=== PATIENT | male | born 1985 | race Caucasian/White ===

== ENCOUNTER 2018-03-07 20:38 | Emergency (ER) | payer BC ==
--- NOTE | 2018-03-07 20:54 | ERPHSYRPT ---
- History of Present Illness Time Seen by Provider: 03/07/18 20:54 Source: patient, family Exam Limitations: no limitations Physician History: 33 y/o white male presents with lower back pain of sudden onset when he stooped over and down to get into a car. 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 pain shoots down bilat buttocks. 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) Method of Injury: bending, twisted Quality: radiating (down bilat buttocks), sharp, other (shooting) Back Pain Location: lumbar spine, paraspinous muscles Back Pain Radiation: buttocks Severity of Pain-Max: moderate Severity of Pain-Current: moderate Modifying Factors: Improves With: immobilization (lying still) Associated Symptoms: lower back pain, muscle spasms, No urinary incontinence, No loss of bowel control, No nausea, No vomiting, No problems urinating, No light-headedness, No dizziness, No numbness in legs/feet, No weakness, No tingling in legs/feet Previous symptoms: no prior history Allergies/Adverse Reactions: No Known Drug Allergies Allergy (Unverified 03/07/18 20:55) Home Medications: Venlafaxine HCl ER 75 mg [Effexor XR 75 MG] 75 mg PO DAILY 03/07/18 [ History] - Review of Systems Constitutional: No Symptoms Eyes: No Symptoms Ears, Nose, & Throat: No Symptoms Respiratory: No Symptoms, No Cough, No Dyspnea Cardiac: No Symptoms Abdominal/Gastrointestinal: No Symptoms, No Abdominal Pain, No Nausea, No Vomiting, No Diarrhea Genitourinary Symptoms: No Symptoms, No Dysuria, No Frequency, No Hematuria Musculoskeletal: No Symptoms Skin: No Symptoms Neurological: No Symptoms Psychological: No Symptoms Endocrine: No Symptoms Hematologic/Lymphatic: No Symptoms Immunological/Allergic: No Symptoms All Other Systems: Reviewed and Negative - Past Medical History Pertinent Past Medical History: Yes Neurological History: No Pertinent History ENT History: No Pertinent History Cardiac History: No Pertinent History Respiratory History: No Pertinent History Endocrine Medical History: No Pertinent History Musculoskeletal History: No Pertinent History GI Medical History: No Pertinent History History: No Pertinent History Psycho-Social History: No Pertinent History Male Reproductive Disorders: No Pertinent History - Past Surgical History Neuro Surgical History: No Pertinent History Cardiac: No Pertinent History Respiratory: No Pertinent History Gastrointestinal: No Pertinent History Genitourinary: No Pertinent History Musculoskeletal: No Pertinent History Male Surgical History: No Pertinent History - Nursing Vital Signs Nursing Vital Signs: Initial Vital Signs Temperature 97.9 F 03/07/18 20:39 Pulse Rate 76 03/07/18 20:39 Respiratory Rate 20 03/07/18 20:39 Blood Pressure 147/97 03/07/18 20:39 O2 Sat by Pulse Oximetry 99 03/07/18 20:39 Pain Scale Pain Intensity [Lower 9 Posterior Back] Pain Intensity 9 - Physical Exam General Appearance: no apparent distress, mild distress, alert, anxiety Eye Exam: PERRL/EOMI, eyes nml inspection Ears, Nose, Throat Exam: normal ENT inspection, moist mucous membranes Neck Exam: normal inspection, non-tender, supple, full range of motion Respiratory Exam: normal breath sounds, lungs clear, airway intact, No chest tenderness, No respiratory distress, No accessory muscle use, No rhonchi, No wheezing, No stridor Cardiovascular Exam: regular rate/rhythm, normal heart sounds, normal peripheral pulses Gastrointestinal Exam: soft, normal bowel sounds, No tenderness, No guarding, No rebound Rectal Exam: not done Back Exam: normal inspection, decreased range of motion, muscle spasm Extremity Exam: normal inspection, normal range of motion, pelvis stable Neurologic Exam: alert, oriented x 3, 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, 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 Skin Exam: normal color, warm, dry Lymphatic Exam: No adenopathy SpO2 Interpretation: normal - Course Nursing assessment & vital signs reviewed: Yes Ordered Tests: Medication Summary Discontinued Medications Generic Name Dose Route Start Last Admin Trade Name Patrickq PRN Reason Stop Dose Admin Hydromorphone HCl 1 mg 03/07/18 21:05 Hydromorphone 1 Mg/Ml Ampule IM 03/07/18 21:06 STAT ONE Hydromorphone HCl Confirm 03/07/18 21:09 Hydromorphone 1 Mg/Ml Ampule Administered 03/07/18 21:10 Dose 1 mg .ROUTE .STK-MED ONE Methylprednisolone Sodium Succinate 125 mg 03/07/18 21:06 Solu-Medrol 125 Mg IM 03/07/18 21:07 STAT ONE Methylprednisolone Sodium Succinate Confirm 03/07/18 21:10 Solu-Medrol 125 Mg Administered 03/07/18 21:11 Dose 125 mg .ROUTE .STK-MED ONE Promethazine HCl 12.5 mg 03/07/18 21:05 Phenergan 25 Mg Inj IM 03/07/18 21:06 STAT ONE Promethazine HCl Confirm 03/07/18 21:09 Phenergan 25 Mg Inj Administered 03/07/18 21:10 Dose 25 mg .ROUTE .STK-MED ONE - Progress Progress: improved, pain not gone completely, re-examined Progress Note: 03/07/18 21:24 pt and i opted for no xrays at this time. pt did not fall. Counseled pt/family regarding: diagnosis, need for follow-up - Departure Time of Disposition: 21:25 Departure Disposition: Home Clinical Impression: Sciatica, Low back strain Condition: Stable Critical Care Time: No Additional Instructions: bedrest with back exercises as discussed. follow up with primary doctor tomorrow for further management. take medications as prescribed Prescriptions: Carisoprodol 350 mg [Soma 350 mg] 350 mg PO Q12H PRN PRN #6 tablet MDD 2 PRN Reason: Muscle Spasms Hydrocodone/APAP 5/325 [[place] 5/325 mg] 1 each PO Q12H PRN PRN #6 tablet MDD 2 PRN Reason: Pain Prednisone 10 mg [Deltasone 10 mg] 10 mg PO TID #12 tablet
[2018-03-07 20:55] VITALS: PULSE 76; O2SAT 99
[2018-03-07] MEDS ORDERED: Hydromorphone 1 mg/ml Ampule IM ONE (21:05)
[2018-03-07] MEDS ORDERED: Phenergan 25 MG INJ IM ONE (21:05)
[2018-03-07] MEDS ORDERED: solu-MEDROL 125 MG IM ONE (21:06)
[2018-03-07] MEDS ORDERED: Phenergan 25 MG INJ ONE ×2 (21:09→21:19)
[2018-03-07] MEDS ORDERED: Hydromorphone 1 mg/ml Ampule ONE (21:09)
[2018-03-07] MEDS ORDERED: solu-MEDROL 125 MG ONE (21:10)
[2018-03-07] MEDS ORDERED: Ativan 2 MG/1 ML VIAL IM ONE ×2 (22:02→22:06)
[2018-03-07] MEDS ORDERED: Ativan 2 MG/1 ML VIAL ONE (22:09)
[2018-03-07 22:17] VITALS: BP 129/79
== END 2018-03-07 22:40 | disposition home or self-care (01) ==
LOC: ED 20:38
DX: M54.30 Sciatica, unspecified side (principal); S39.012A Strain of muscle, fascia and tendon of lower back, initial encounter; X50.0XXA Overexertion from strenuous movement or load, initial encounter; M62.838 Other muscle spasm; F41.9 Anxiety disorder, unspecified
CPT/HCPCS: 96372; 99284; J1170; J2060; J2550; J2930

== ENCOUNTER 2021-03-16 09:54 | Observation (INO) | payer BC ==
[2021-03-16] MEDS ORDERED: DUONEB 0.5-3 MG/3 ml Neb IH ONE ×2 (10:32→10:48)
[2021-03-16] MEDS ORDERED: solu-MEDROL 125 MG, Sterile H2O 10 ml 2 ML IV ONE ×2 (10:32)
[2021-03-16] MEDS ORDERED: Zofran 4 MG/2 ML VIAL ONE (10:36)
[2021-03-16] MEDS ORDERED: solu-MEDROL ONE (10:37)
[2021-03-16] MEDS ORDERED: Zofran 4 MG/2 ML VIAL IV ONE (10:37)
[2021-03-16 10:54] LABS: Absolute Neutrophil Ct (ANC) 8.75 (1.4-6.9); BASOPHIL % 0.3 % (0.0-0.4); Basophil (Absolute #) 0.03 (0-0.4); Eosinophil % 2.6 % (0.00-5.0); Hematocrit 50.3 % (42-50); Lymphocyte (Absolute #) 1.46 (1.0-4.6); Lymphocytes % 12.7 % (24.0-44.0); Mean Cell Volume 88.9 fl (78-100); Mean Corpuscular Hgb Concent. 33.8 g/dl (32-36); Mean Platelet Volume 11.7 fl (7.5-11.0); Monocyte (Absolute #) 0.98 (0.0-1.3); Monocytes % 8.5 % (0.0-12.0); Neutrophil % 75.9 % (36.0-66.0); Platelet Count 246 K/mm3 (150-450); Red Blood Count 5.66 M/mm3 (4.1-5.6); Red Cell Distribution Width 13.1 % (11.5-14.0); White Blood Count 11.5 K/mm3 (4.0-10.5)
[2021-03-16 11:12] LABS: ALBUMIN 4.5 g/dL (3.5-5.0); ALKALINE PHOSPHATASE 101 U/L (38-126); ANION GAP 16.4 MEQ/L (5-15); BLOOD UREA NITROGEN 15 mg/dL (9-20); CHLORIDE 104 mmol/L (98-107); Calcium 9.3 mg/dL (8.4-10.2); Carbon Dioxide 22 mmol/L (22-30); Creatinine 1 0.91 mg/dL (0.66-1.25); EST GLOMERULAR FILTRATION RATE > 60.0 ML/MIN; Glucose 112 mg/dL (74-106); LIPASE 31 U/L (23-300); MAGNESIUM 2.2 mg/dL (1.6-2.3); NT PRO BNP 70.2 pg/mL (0-450); Potassium 3.8 mmol/L (3.5-5.1); SGOT/AST 44 U/L (17-59); SGPT/ALT 86 U/L (0-50); SODIUM 139 mmol/L (137-145); Total Protein 7.9 g/dL (6.3-8.2)
--- NOTE | 2021-03-16 11:25 | ERPHSYRPT ---
- History of Present Illness Time Seen by Provider: 03/16/21 10:04 Source: patient Exam Limitations: no limitations Patient Subjective Stated Complaint: pt sent from [facility] for cough and sob since yesterday, pt states he also has a dull taste and vomited x1 yesterday. no feve. Triage Nursing Assessment: pt alert, anxious, resp labored with excertion, skin w/d/p. abd soft, face mask in place. chest clear, no edema noted Timing/Duration: day(s) (2), gradual onset, worse Activities at Onset: activity, rest Severity of Dyspnea-Max: moderate Severity of Dyspnea-Current: moderate Possible Cause: no prior episodes Modifying Factors: Improves With: rest. Worsens With: activity, coughing, deep breath, exertion Associated Symptoms: cough, chest pain/discomfort, fever, wheezing Allergies/Adverse Reactions: No Known Drug Allergies Allergy (Verified 03/16/21 10:25) Home Medications: Fluoxetine HCl 10 mg [Prozac 10 mg] 1 ea DAILY 03/16/21 [History] Hx Tetanus, Diphtheria Vaccination/Date Given: Yes Hx Influenza Vaccination/Date Given: No Hx Pneumococcal Vaccination/Date Given: No Immunizations Up to Date: Yes Travel Risk - International Travel Have you traveled outside of the country in past 3 weeks: No - Coronavirus Screening Are you exhibiting any of the following symptoms?: Yes Symptoms: Cough: New Onset, Shortness of Breath Close contact with a COVID-19 positive Pt in past 14-21 Days: No - Vaccine Status Have you recieved a Covid-19 vaccination: Yes [employer]enger [employer]: Moderna - Vaccination Dates Date of 2cond Vaccination (if applicable): ? - Review of Systems Constitutional: Fever, Fatigue Eyes: No Symptoms Ears, Nose, & Throat: No Symptoms Respiratory: Cough, Dyspnea, Dyspnea on Exertion (KAHN), Wheezing Cardiac: Chest Pain Abdominal/Gastrointestinal: Nausea, Vomiting Genitourinary Symptoms: No Symptoms Musculoskeletal: Myalgias Skin: No Symptoms Neurological: No Symptoms Psychological: No Symptoms Endocrine: No Symptoms Hematologic/Lymphatic: No Symptoms - Past Medical History Pertinent Past Medical History: Yes Neurological History: No Pertinent History ENT History: No Pertinent History Cardiac History: No Pertinent History Respiratory History: No Pertinent History Endocrine Medical History: No Pertinent History Musculoskeletal History: No Pertinent History GI Medical History: No Pertinent History History: No Pertinent History Psycho-Social History: No Pertinent History Male Reproductive Disorders: No Pertinent History - Past Surgical History Past Surgical History: Yes Neuro Surgical History: No Pertinent History Cardiac: No Pertinent History Respiratory: No Pertinent History Gastrointestinal: No Pertinent History Genitourinary: No Pertinent History Musculoskeletal: No Pertinent History Male Surgical History: No Pertinent History - Social History Smoking Status: Current every day smoker Exposure to second hand smoke: Yes Drug Use: none Patient Lives Alone: No - Nursing Vital Signs Nursing Vital Signs: Initial Vital Signs Temperature 97.0 F 03/16/21 10:17 Pulse Rate 102 H 03/16/21 10:17 Respiratory Rate 18 03/16/21 10:17 Blood Pressure 149/92 03/16/21 10:17 O2 Sat by Pulse Oximetry 94 L 03/16/21 10:17 Pain Scale Pain Intensity 4 - Physical Exam General Appearance: no apparent distress, alert Eye Exam: PERRL/EOMI, eyes nml inspection Ears, Nose, Throat Exam: hearing grossly normal, normal ENT inspection Neck Exam: normal inspection, non-tender, supple, full range of motion Respiratory Exam: diminished breath sounds, wheezing Cardiovascular/Chest Exam: normal heart sounds, regular rate/rhythm Abdominal/Gastrointestinal Exam: soft, normal bowel sounds Extremity Exam: non-tender, normal range of motion, normal inspection Neurologic Exam: alert, oriented x 3, cooperative Skin Exam: normal color SpO2 Interpretation: normal SpO2: 96 O2 Delivery: Room Air Ordered Tests: Active Orders 24 hr Category Date Time Status Director Of Casino STAT Care 03/16/21 10:33 Active EKG-ER Only STAT Care 03/16/21 10:32 Active IV Insertion STAT Care 03/16/21 10:32 Active CHEST 1 VIEW (PORTABLE) Stat Exams 03/16/21 10:33 Taken CHEST WITH CONTRAST [CT] Stat Exams 03/16/21 11:17 Taken BLOOD CULTURE Stat Lab 03/16/21 10:53 Received CBC W DIFF Stat Lab 03/16/21 10:10 Completed CMP Stat Lab 03/16/21 10:30 Completed D-DIMER QUANTITATIVE Stat Lab 03/16/21 10:30 Completed LIPASE Stat Lab 03/16/21 10:30 Completed Lactic Acid Stat Lab 03/16/21 10:50 Completed MAGNESIUM Stat Lab 03/16/21 10:30 Completed NT PRO BNP Stat Lab 03/16/21 10:30 Completed TROPONIN Q3H Lab 03/16/21 10:30 Completed TROPONIN Q3H Lab 03/16/21 13:20 Completed TROPONIN Q3H Lab 03/16/21 16:45 Ordered TROPONIN Q3H Lab 03/16/21 19:45 Ordered TROPONIN Q3H Lab 03/16/21 22:45 Ordered Respiratory Therapy Assessment DAILY RT 03/16/21 10:59 Active Medication Summary Discontinued Medications Generic Name Dose Route Start Last Admin Trade Name Freq PRN Reason Stop Dose Admin Albuterol/Ipratropium 3 ml 03/16/21 10:32 03/16/21 10:58 Ipratropium/Albuterol Sulfate 3 Ml Ampul.Neb IH 03/16/21 10:33 3 ml STAT ONE Administration Albuterol/Ipratropium Confirm 03/16/21 10:48 Ipratropium/Albuterol Sulfate 3 Ml Ampul.Neb Administered 03/16/21 10:49 Dose 3 ml IH .STK-MED ONE Methylprednisolone Sodium 0 mg 03/16/21 10:32 03/16/21 10:38 Succinate 125 mg/ Sterile IV 03/16/21 10:33 125 mg Water 2 ml STAT ONE Administration Methylprednisolone Sodium Succinate Confirm 03/16/21 10:37 Methylprednis Sod Succ 125 Mg/2 Ml Vial Administered 03/16/21 10:38 Dose 125 mg .ROUTE .STK-MED ONE Ondansetron HCl 4 mg 03/16/21 10:37 03/16/21 10:39 Ondansetron Hcl 4 Mg/2 Ml Vial IV 03/16/21 10:38 4 mg STAT ONE Administration Ondansetron HCl Confirm 03/16/21 10:36 Ondansetron Hcl 4 Mg/2 Ml Vial Administered 03/16/21 10:37 Dose 4 mg .ROUTE .STK-MED ONE Lab/Rad Data: Laboratory Result Diagrams 03/16/21 10:10 03/16/21 10:30 Laboratory Results 03/16/21 03/16/21 03/16/21 Range/Units 13:20 10:50 10:30 WBC (4.0-10.5) K/mm3 RBC (4.1-5.6) M/mm3 Hgb (12.5-18.0) gm/dl Hct (42-50) % MCV (78-100) fl MCH (26-32) pg MCHC (32-36) g/dl RDW (11.5-14.0) % Plt Count (150-450) K/mm3 MPV (7.5-11.0) fl Gran % (36.0-66.0) % Eos # (Auto) (0-0.5) Absolute Lymphs (auto) (1.0-4.6) Absolute Monos (auto) (0.0-1.3) Lymphocytes % (24.0-44.0) % Monocytes % (0.0-12.0) % Eosinophils % (0.00-5.0) % Basophils % (0.0-0.4) % Absolute Granulocytes (1.4-6.9) Basophils # (0-0.4) D-Dimer (215-500) ng/mL Sodium (137-145) mmol/L Potassium (3.5-5.1) mmol/L Chloride (98-107) mmol/L Carbon Dioxide (22-30) mmol/L Anion Gap (5-15) MEQ/L BUN (9-20) mg/dL Creatinine (0.66-1.25) mg/dL Estimated GFR ML/MIN Glucose (74-106) mg/dL Lactic Acid 1.2 (0.4-2.0) Calcium (8.4-10.2) mg/dL Magnesium (1.6-2.3) mg/dL Total Bilirubin (0.2-1.3) mg/dL AST (17-59) U/L ALT (0-50) U/L Alkaline Phosphatase (38-126) U/L Troponin I < 0.012 < 0.012 (0.000-0.034) ng/mL NT-Pro-B Natriuret Pep (0-450) pg/mL Serum Total Protein (6.3-8.2) g/dL Albumin (3.5-5.0) g/dL Lipase (23-300) U/L 03/16/21 03/16/21 03/16/21 Range/Units 10: 10: 10:10 WBC 11.5 H (4.0-10.5) K/mm3 RBC 5.66 H (4.1-5.6) M/mm3 Hgb 17.0 (12.5-18.0) gm/dl Hct 50.3 H (42-50) % MCV 88.9 (78-100) fl MCH 30.0 (26-32) pg MCHC 33.8 (32-36) g/dl RDW 13.1 (11.5-14.0) % Plt Count 246 (150-450) K/mm3 MPV 11.7 H (7.5-11.0) fl Gran % 75.9 H (36.0-66.0) % Eos # (Auto) 0.30 (0-0.5) Absolute Lymphs (auto) 1.46 (1.0-4.6) Absolute Monos (auto) 0.98 (0.0-1.3) Lymphocytes % 12.7 L (24.0-44.0) % Monocytes % 8.5 (0.0-12.0) % Eosinophils % 2.6 (0.00-5.0) % Basophils % 0.3 (0.0-0.4) % Absolute Granulocytes 8.75 H (1.4-6.9) Basophils # 0.03 (0-0.4) D-Dimer < 215 L (215-500) ng/mL Sodium 139 (137-145) mmol/L Potassium 3.8 (3.5-5.1) mmol/L Chloride 104 (98-107) mmol/L Carbon Dioxide 22 (22-30) mmol/L Anion Gap 16.4 H (5-15) MEQ/L BUN 15 (9-20) mg/dL Creatinine 0.91 (0.66-1.25) mg/dL Estimated GFR > 60.0 ML/MIN Glucose 112 H (74-106) mg/dL Lactic Acid (0.4-2.0) Calcium 9.3 (8.4-10.2) mg/dL Magnesium 2.2 (1.6-2.3) mg/dL Total Bilirubin 1.00 (0.2-1.3) mg/dL AST 44 (17-59) U/L ALT 86 H (0-50) U/L Alkaline Phosphatase 101 (38-126) U/L Troponin I (0.000-0.034) ng/mL NT-Pro-B Natriuret Pep 70.2 (0-450) pg/mL Serum Total Protein 7.9 (6.3-8.2) g/dL Albumin 4.5 (3.5-5.0) g/dL Lipase 31 (23-300) U/L - Progress Progress: improved Air Movement: fair Progress Note: 03/16/21 13:53 Discussed with /work-upt, reviewed history and patient is accepted for admission. Blood Culture(s) Obtained: Yes Antibiotics given: Yes Discussed with : Kyle Will see patient in: hospital (observation) Counseled pt/family regarding: lab results, diagnosis, rad results - Departure Departure Disposition: Observation Clinical Impression: Bilateral pneumonia Qualifiers: Pneumonia type: due to unspecified organism Lung location: unspecified part of lung Qualified Code(s): J18.9 - Pneumonia, unspecified organism Condition: Stable Critical Care Time: No Referrals: LIAN REYNA NP [Primary Care Provider] -
[2021-03-16] MEDS ORDERED: ROCEPHIN 2 Gm-D5w 50ML BAG** 2 G/50 ML IVPB IV STA (13:52)
[2021-03-16] MEDS ORDERED: Zithromax 500 MG/ 250 ML NaCl Premix 500 MG/250 ML IVPB IV STA (13:52)
[2021-03-16] MEDS ORDERED: ROCEPHIN 1 Gm-D5w 50 ml Bag** 0 G/0 ML IVPB IV ONE (14:05)
[2021-03-16] MEDS ORDERED: ROCEPHIN 2 Gm-D5w 50ML BAG** 2 G/50 ML IVPB IV ONE (14:08)
--- NOTE | 2021-03-16 14:21 | ERPHSYRPT ---
- History of Present Illness Time Seen by Provider: 03/16/21 10:04 Source: patient Exam Limitations: no limitations Patient Subjective Stated Complaint: pt sent from [facility] for cough and sob since yesterday, pt states he also has a dull taste and vomited x1 yesterday. no feve. Triage Nursing Assessment: pt alert, anxious, resp labored with excertion, skin w/d/p. abd soft, face mask in place. chest clear, no edema noted Physician History: 36 years old vaccinated against COVID-19 presented in the ER with chief com plaint of low-grade fever chills with nonproductive cough with associated nausea and a couple of episodes of vomiting for the last 2 days. Patient reports generalized weakness fatigue and tiredness along with change in sense of smell and taste. Patient reports increasing shortness of breath with activity and better with resting. He was initially evaluated at [facility] and oxygen saturation was dropping into the low 80s and is sent in the ER. Patient reports positive sick contact with known COVID-19 case. Oxygen saturation is around 90% on room air at resting and drops to 87 and comes back up on its own to 94%. Does report some wheezing and tightness in the chest as well. Timing/Duration: day(s) (2), gradual onset, worse Activities at Onset: activity Severity of Dyspnea-Max: moderate Severity of Dyspnea-Current: moderate Possible Cause: illness exposure Modifying Factors: Improves With: rest. Worsens With: activity, coughing, deep breath, exertion Associated Symptoms: cough, chest pain/discomfort, wheezing, tightness Allergies/Adverse Reactions: No Known Drug Allergies Allergy (Verified 03/16/21 10:25) Home Medications: Fluoxetine HCl 10 mg [Prozac 10 mg] 1 ea DAILY 03/16/21 [History] Hx Tetanus, Diphtheria Vaccination/Date Given: Yes Hx Influenza Vaccination/Date Given: No Hx Pneumococcal Vaccination/Date Given: No Immunizations Up to Date: Yes Travel Risk - International Travel Have you traveled outside of the country in past 3 weeks: No - Coronavirus Screening Are you exhibiting any of the following symptoms?: Yes Symptoms: Cough: New Onset, Shortness of Breath Close contact with a COVID-19 positive Pt in past 14-21 Days: No - Vaccine Status Have you recieved a Covid-19 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 - Review of Systems Constitutional: Fever, Fatigue, Weakness Eyes: No Symptoms Ears, Nose, & Throat: Nose Congestion, Throat Pain Respiratory: Cough, Cyanosis, Dyspnea on Exertion ([facility]), Wheezing Cardiac: Chest Pain Abdominal/Gastrointestinal: Nausea, Vomiting Genitourinary Symptoms: No Symptoms Musculoskeletal: Myalgias Skin: No Symptoms Neurological: No Symptoms Psychological: Anxiety Endocrine: No Symptoms Hematologic/Lymphatic: No Symptoms Immunological/Allergic: No Symptoms - Past Medical History Pertinent Past Medical History: Yes Neurological History: No Pertinent History ENT History: No Pertinent History Cardiac History: No Pertinent History Respiratory History: No Pertinent History Endocrine Medical History: No Pertinent History Musculoskeletal History: No Pertinent History GI Medical History: No Pertinent History History: No Pertinent History Psycho-Social History: No Pertinent History Male Reproductive Disorders: No Pertinent History - Past Surgical History Past Surgical History: Yes Neuro Surgical History: No Pertinent History Cardiac: No Pertinent History Respiratory: No Pertinent History Gastrointestinal: No Pertinent History Genitourinary: No Pertinent History Musculoskeletal: No Pertinent History Male Surgical History: No Pertinent History - Social History Smoking Status: Current every day smoker Exposure to second hand smoke: Yes Drug Use: none Patient Lives Alone: No - Nursing Vital Signs Nursing Vital Signs: Initial Vital Signs Temperature 97.0 F 03/16/21 10:17 Pulse Rate 102 H 03/16/21 10:17 Respiratory Rate 18 03/16/21 10:17 Blood Pressure 149/92 03/16/21 10:17 O2 Sat by Pulse Oximetry 94 L 03/16/21 10:17 Pain Scale Pain Intensity 4 - Physical Exam General Appearance: no apparent distress, alert, anxiety Eye Exam: PERRL/EOMI, eyes nml inspection Ears, Nose, Throat Exam: hearing grossly normal, pharyngeal erythema Neck Exam: normal inspection, non-tender, supple, full range of motion Respiratory Exam: diminished breath sounds, rhonchi, wheezing Cardiovascular/Chest Exam: normal heart sounds, regular rate/rhythm Abdominal/Gastrointestinal Exam: soft, normal bowel sounds, No tenderness Extremity Exam: non-tender, normal range of motion, normal inspection Neurologic Exam: alert, oriented x 3, cooperative, 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 SpO2: 93 O2 Delivery: Room Air - Course EKG Interpreted by Me: RATE (84), Sinus Rhythm, NORMAL AXIS, NORMAL INTERVALS, NORMAL QRS, Other (PACs) Ordered Tests: Active Orders 24 hr Category Date Time Status Electronics Teacher STAT Care 03/16/21 10:33 Active EKG-ER Only STAT Care 03/16/21 10:32 Active IV Insertion STAT Care 03/16/21 10:32 Active CHEST 1 VIEW (PORTABLE) Stat Exams 03/16/21 10:33 Taken CHEST WITH CONTRAST [CT] Stat Exams 03/16/21 11:17 Taken BLOOD CULTURE Stat Lab 03/16/21 10:53 Received CBC W DIFF Stat Lab 03/16/21 10:10 Completed CMP Stat Lab 03/16/21 10:30 Completed D-DIMER QUANTITATIVE Stat Lab 03/16/21 10:30 Completed LIPASE Stat Lab 03/16/21 10:30 Completed Lactic Acid Stat Lab 03/16/21 10:50 Completed MAGNESIUM Stat Lab 03/16/21 10:30 Completed NT PRO BNP Stat Lab 03/16/21 10:30 Completed TROPONIN Q3H Lab 03/16/21 10:30 Completed TROPONIN Q3H Lab 03/16/21 13:20 Completed TROPONIN Q3H Lab 03/16/21 16:45 Ordered TROPONIN Q3H Lab 03/16/21 19:45 Ordered TROPONIN Q3H Lab 03/16/21 22:45 Ordered Respiratory Therapy Assessment DAILY RT 03/16/21 10:59 Active Medication Summary Discontinued Medications Generic Name Dose Route Start Last Admin Trade Name Freq PRN Reason Stop Dose Admin Albuterol/Ipratropium 3 ml 03/16/21 10:32 03/16/21 10:58 Ipratropium/Albuterol Sulfate 3 Ml Ampul.Neb IH 03/16/21 10:33 3 ml STAT ONE Administration Albuterol/Ipratropium Confirm 03/16/21 10:48 Ipratropium/Albuterol Sulfate 3 Ml Ampul.Neb Administered 03/16/21 10:49 Dose 3 ml IH .STK-MED ONE Methylprednisolone Sodium 0 mg 03/16/21 10:32 03/16/21 10:38 Succinate 125 mg/ Sterile IV 03/16/21 10:33 125 mg Water 2 ml STAT ONE Administration Azithromycin 500 mg in 250 mls @ 250 mls/hr 03/16/21 13:52 03/16/21 14:43 Zithromax 500 Mg/ 250 Ml Nacl Premix IV 03/16/21 14:51 250 mls/hr STAT STA 250 mls/hr Administration Ceftriaxone Sodium/Dextrose 2 g in 50 mls @ 100 mls/hr 03/16/21 13:52 10/3 14:42 Rocephin 2 Gm-D5w 50ml Bag IV 03/16/21 14:21 Infused STAT STA Infusion Ceftriaxone Sodium/Dextrose Confirm 03/16/21 14:05 Rocephin 1 Gm-D5w 50 Ml Bag Administered 03/16/21 14:06 Dose 1 g in 50 mls @ ud IV .STK-MED ONE Ceftriaxone Sodium/Dextrose Confirm 03/16/21 14:08 Rocephin 2 Gm-D5w 50ml Bag Administered 03/16/21 14:09 Dose 2 g in 50 mls @ ud IV .STK-MED ONE Azithromycin Confirm 03/16/21 14:42 Zithromax 500 Mg/ 250 Ml Nacl Premix Administered 03/16/21 14:43 Dose 500 mg in 250 mls @ ud IV .STK-MED ONE Methylprednisolone Sodium Succinate Confirm 03/16/21 10:37 Methylprednis Sod Succ 125 Mg/2 Ml Vial Administered 03/16/21 10:38 Dose 125 mg .ROUTE .STK-MED ONE Ondansetron HCl 4 mg 03/16/21 10:37 03/16/21 10:39 Ondansetron Hcl 4 Mg/2 Ml Vial IV 03/16/21 10:38 4 mg STAT ONE Administration Ondansetron HCl Confirm 03/16/21 10:36 Ondansetron Hcl 4 Mg/2 Ml Vial Administered 03/16/21 10:37 Dose 4 mg .ROUTE .STK-MED ONE Lab/Rad Data: Laboratory Result Diagrams 03/16/21 10:10 03/16/21 10:30 Laboratory Results 03/16/21 03/16/21 03/16/21 Range/Units 13:49 13:20 10:50 WBC (4.0-10.5) K/mm3 RBC (4.1-5.6) M/mm3 Hgb (12.5-18.0) gm/dl Hct (42-50) % MCV (78-100) fl MCH (26-32) pg MCHC (32-36) g/dl RDW (11.5-14.0) % Plt Count (150-450) K/mm3 MPV (7.5-11.0) fl Gran % (36.0-66.0) % Eos # (Auto) (0-0.5) Absolute Lymphs (auto) (1.0-4.6) Absolute Monos (auto) (0.0-1.3) Lymphocytes % (24.0-44.0) % Monocytes % (0.0-12.0) % Eosinophils % (0.00-5.0) % Basophils % (0.0-0.4) % Absolute Granulocytes (1.4-6.9) Basophils # (0-0.4) D-Dimer (215-500) ng/mL Sodium (137-145) mmol/L Potassium (3.5-5.1) mmol/L Chloride (98-107) mmol/L Carbon Dioxide (22-30) mmol/L Anion Gap (5-15) MEQ/L BUN (9-20) mg/dL Creatinine (0.66-1.25) mg/dL Estimated GFR ML/MIN Glucose (74-106) mg/dL Lactic Acid 1.2 (0.4-2.0) Calcium (8.4-10.2) mg/dL Magnesium (1.6-2.3) mg/dL Total Bilirubin (0.2-1.3) mg/dL AST (17-59) U/L ALT (0-50) U/L Alkaline Phosphatase (38-126) U/L Troponin I < 0.012 (0.000-0.034) ng/mL NT-Pro-B Natriuret Pep (0-450) pg/mL Serum Total Protein (6.3-8.2) g/dL Albumin (3.5-5.0) g/dL Lipase (23-300) U/L SARS-CoV-2 (PCR) NEGATIVE (NEGATIVE) 03/16/21 03/16/21 03/16/21 Range/Units 10:30 10: 10:30 WBC (4.0-10.5) K/mm3 RBC (4.1-5.6) M/mm3 Hgb (12.5-18.0) gm/dl Hct (42-50) % MCV (78-100) fl MCH (26-32) pg MCHC (32-36) g/dl RDW (11.5-14.0) % Plt Count (150-450) K/mm3 MPV (7.5-11.0) fl Gran % (36.0-66.0) % Eos # (Auto) (0-0.5) Absolute Lymphs (auto) (1.0-4.6) Absolute Monos (auto) (0.0-1.3) Lymphocytes % (24.0-44.0) % Monocytes % (0.0-12.0) % Eosinophils % (0.00-5.0) % Basophils % (0.0-0.4) % Absolute Granulocytes (1.4-6.9) Basophils # (0-0.4) D-Dimer < 215 L (215-500) ng/mL Sodium 139 (137-145) mmol/L Potassium 3.8 (3.5-5.1) mmol/L Chloride 104 (98-107) mmol/L Carbon Dioxide 22 (22-30) mmol/L Anion Gap 16.4 H (5-15) MEQ/L BUN 15 (9-20) mg/dL Creatinine 0.91 (0.66-1.25) mg/dL Estimated GFR > 60.0 ML/MIN Glucose 112 H (74-106) mg/dL Lactic Acid (0.4-2.0) Calcium 9.3 (8.4-10.2) mg/dL Magnesium 2.2 (1.6-2.3) mg/dL Total Bilirubin 1.00 (0.2-1.3) mg/dL AST 44 (17-59) U/L ALT 86 H (0-50) U/L Alkaline Phosphatase 101 (38-126) U/L Troponin I < 0.012 (0.000-0.034) ng/mL NT-Pro-B Natriuret Pep 70.2 (0-450) pg/mL Serum Total Protein 7.9 (6.3-8.2) g/dL Albumin 4.5 (3.5-5.0) g/dL Lipase 31 (23-300) U/L SARS-CoV-2 (PCR) (NEGATIVE) 03/16/21 Range/Units 10:10 WBC 11.5 H (4.0-10.5) K/mm3 RBC 5.66 H (4.1-5.6) M/mm3 Hgb 17.0 (12.5-18.0) gm/dl Hct 50.3 H (42-50) % MCV 88.9 (78-100) fl MCH 30.0 (26-32) pg MCHC 33.8 (32-36) g/dl RDW 13.1 (11.5-14.0) % Plt Count 246 (150-450) K/mm3 MPV 11.7 H (7.5-11.0) fl Gran % 75.9 H (36.0-66.0) % Eos # (Auto) 0.30 (0-0.5) Absolute Lymphs (auto) 1.46 (1.0-4.6) Absolute Monos (auto) 0.98 (0.0-1.3) Lymphocytes % 12.7 L (24.0-44.0) % Monocytes % 8.5 (0.0-12.0) % Eosinophils % 2.6 (0.00-5.0) % Basophils % 0.3 (0.0-0.4) % Absolute Granulocytes 8.75 H (1.4-6.9) Basophils # 0.03 (0-0.4) D-Dimer (215-500) ng/mL Sodium (137-145) mmol/L Potassium (3.5-5.1) mmol/L Chloride (98-107) mmol/L Carbon Dioxide (22-30) mmol/L Anion Gap (5-15) MEQ/L BUN (9-20) mg/dL Creatinine (0.66-1.25) mg/dL Estimated GFR ML/MIN Glucose (74-106) mg/dL Lactic Acid (0.4-2.0) Calcium (8.4-10.2) mg/dL Magnesium (1.6-2.3) mg/dL Total Bilirubin (0.2-1.3) mg/dL AST (17-59) U/L ALT (0-50) U/L Alkaline Phosphatase (38-126) U/L Troponin I (0.000-0.034) ng/mL NT-Pro-B Natriuret Pep (0-450) pg/mL Serum Total Protein (6.3-8.2) g/dL Albumin (3.5-5.0) g/dL Lipase (23-300) U/L SARS-CoV-2 (PCR) (NEGATIVE) - Progress Progress: improved Air Movement: good Progress Note: 03/16/21 14:19 36-year-old is evaluated for worsening shortness of breath along with cough and fever with positive known COVID-19 contact. Patient oxygen saturation is around 90% on room air and drops few points above and comes back up at resting. Placed on a 2 L oxygen and is satting around 96%. Chest x-ray showed bilateral few airspace disease. White count 11, grossly unremarkable chemistry except for mildly elevated transaminases. CTA showed bilateral airspace disease consistent with atypical pneumonia/viral pneumonia. Given dose of antibiotic along with steroids and breathing treatment. Patient is feeling better on reevaluation. With his oxygen saturation dropping I think it would be better if we observe him in the hospital. I have discussed with and patient is accepted for admission. 03/16/21 15:23 Patient has negative COVID-19. D[address] with Dr. Mayes, will hold off on remdesivir for now and will continue with antibiotics, steroids and patient is accepted for admission with contact/droplet/airborne precautions. Blood Culture(s) Obtained: Yes Antibiotics given: Yes Discussed with : Kyle Will see patient in: hospital (observation) Counseled pt/family regarding: lab results, diagnosis, rad results - Departure Departure Disposition: Observation Clinical Impression: Bilateral pneumonia Qualifiers: Pneumonia type: due to unspecified organism Lung location: unspecified part of lung Qualified Code(s): J18.9 - Pneumonia, unspecified organism Condition: Stable Critical Care Time: No Referrals: LIAN REYNA NP [Primary Care Provider] -
[2021-03-16] MEDS ORDERED: Zithromax 500 MG/ 250 ML NaCl Premix 500 MG/250 ML IVPB IV ONE (14:42)
[2021-03-16] MEDS ORDERED: TYLENOL 325 MG PO PRN (16:03)
[2021-03-16] MEDS ORDERED: Zofran 4 MG/2 ML VIAL IV PRN (16:03)
--- NOTE | 2021-03-16 18:10 | XRAY ---
Indication: Short of breath, cough, and fever. Suspect Covid 19. Comparison: None Portable chest demonstrates subtle hazy patchy right lung groundglass airspace disease. Remaining heart, lungs, and bony thorax are unremarkable.
--- NOTE | 2021-03-16 18:10 | XRAY ---
Indication: Short of breath and cough. Suspect Covid 19. Multiple contiguous axial images obtained through the chest using 100 cc Isovue-370 contrast and PE protocol. Comparison: None There is suboptimal opacification of the pulmonary arteries limiting evaluation for pulmonary embolus. No obvious central pulmonary embolus. Heart not enlarged. Aorta normal in course and caliber. Small subcarinal calcified nodes. No pathologic mediastinal/hilar lymphadenopathy. Lungs demonstrates minimal patchy diffuse right lung and minimal left lower lobe groundglass airspace disease without consolidation/effusion. A few tiny right lung calcified granulomas. Bony thorax intact. Limited upper abdomen demonstrates fatty liver. Impression: 1. Pulmonary embolus evaluation limited due to suboptimal contrast opacification. No obvious central pulmonary embolus. 2. Minimal patchy groundglass airspace disease, right greater than left. 3. Incidental fatty liver and old granulomatous disease. Comment: Preliminary interpretation may by [facility]. No critical discrepancy.
[2021-03-16] MEDS: DUONEB 0.5-3 MG/3 ml Neb IH SCH (19:21)
[2021-03-17] MEDS: DUONEB 0.5-3 MG/3 ml Neb IH SCH ×2 (01:05→06:26)
[2021-03-17 01:27] VITALS: O2SAT 94
[2021-03-17 06:06] LABS: Absolute Neutrophil Ct (ANC) 10.95 (1.4-6.9); BASOPHIL % 0.1 % (0.0-0.4); Basophil (Absolute #) 0.02 (0-0.4); Eosinophil % 0.2 % (0.00-5.0); Eosinophil (Absolute #) 0.03 (0-0.5); Hematocrit 45.2 % (42-50); Lymphocytes % 12.8 % (24.0-44.0); Mean Cell Volume 90.2 fl (78-100); Mean Corpuscular Hemoglobin 29.9 pg (26-32); Mean Corpuscular Hgb Concent. 33.2 g/dl (32-36); Mean Platelet Volume 10.9 fl (7.5-11.0); Monocyte (Absolute #) 1.25 (0.0-1.3); Monocytes % 8.9 % (0.0-12.0); Platelet Count 235 K/mm3 (150-450); Red Blood Count 5.01 M/mm3 (4.1-5.6); Red Cell Distribution Width 12.9 % (11.5-14.0); White Blood Count 14.1 K/mm3 (4.0-10.5)
[2021-03-17 06:32] LABS: ALKALINE PHOSPHATASE 82 U/L (38-126); ANION GAP 12.1 MEQ/L (5-15); BLOOD UREA NITROGEN 16 mg/dL (9-20); CHLORIDE 104 mmol/L (98-107); Carbon Dioxide 23 mmol/L (22-30); Creatinine 1 0.78 mg/dL (0.66-1.25); EST GLOMERULAR FILTRATION RATE > 60.0 ML/MIN; Glucose 119 mg/dL (74-106); Potassium 3.7 mmol/L (3.5-5.1); SGOT/AST 26 U/L (17-59); SGPT/ALT 60 U/L (0-50); SODIUM 136 mmol/L (137-145); Total Protein 7.3 g/dL (6.3-8.2)
[2021-03-17] MEDS ORDERED: CLARITIN 10 MG PO PRN (07:50)
[2021-03-17] MEDS ORDERED: ROCEPHIN 1 Gm-D5w 50 ml Bag** 1 G/50 ML IVPB IV SCH (10:00)
[2021-03-17] MEDS ORDERED: Zithromax 500 MG/ 250 ML NaCl Premix 500 MG/250 ML IVPB IV SCH (10:00)
[2021-03-17] MEDS ORDERED: ENOXAPARIN SODIUM SQ SCH (10:00)
[2021-03-17] MEDS ORDERED: PROZAC 10 MG PO SCH (10:00)
[2021-03-17] MEDS ORDERED: PROTONIX 40 MG IV IV SCH (10:00)
[2021-03-17 12:16] VITALS: BP 121/64; PULSE 81
--- NOTE | 2021-03-17 13:38 | PCM.SSS ---
History of Present Illness - Chief Complaint Chief Complaint: Bilateral Pneumonia History of Present Illness: is a 36 year old male pt of Dr. Jacobson who was admitted through ER with CP and SOB, dx with atypical pna. He had fever to 102 at home with some shortness of breath, starting about 2 days ago. He had gone to yesterday c/o cough, decreased taste, weakness and fatigue, with some post-tussive vomiting. He was sent to ER after they noted O2 sat in low 80s. In ER he was placed on 2L NC. CXR showed patchy R lung ground glass airspace disease. CT chest showed no obvious PE; minimal patchy groundglass opacities, R>L, and fatty liver. It was assumed he likely had Covid, but when his Covid test was negative, he received IV rocephin and zithromax and was admitted to med surg for observation. He did have a positive Covid contact. However, he did have Covid in the past and he has been fully vaccinated. Initial WBC count was 11.5; is 14.1 this morning. He did get 1 dose of steroids in ER, but they were not continued on the floor. His troponins were neg x 3. He has had no O2 since being in the ER, and had none overnight. - Review of Systems Constitutional: Fatigue, Weakness Respiratory: Cough, Short Of Breath Abdominal/Gastrointestinal: Vomiting All Other Systems: Reviewed and Negative Medications & Allergies Home Medications: Home Medication List Fluoxetine HCl 10 mg [Prozac 10 mg] 10 mg PO DAILY 03/16/21 [History Confirmed 03/16/21] Loratadine 10 mg [Claritin 10 mg] 10 mg PO DAILY PRN PRN 03/16/21 [History Confirmed 03/16/21] Azithromycin 250 mg [Zithromax 250 MG TABLET] 250 mg PO DAILY 3 Days #3 tablet 03/17/21 [Rx] Allergies/Adverse Reactions: Allergies Allergy/AdvReac Type Severity Reaction Status Date / Time No Known Drug Allergies Allergy Verified 03/16/21 10:25 - Past Medical History Past Medical History: No Neurological History: No Pertinent History ENT History: No Pertinent History Cardiac History: No Pertinent History Respiratory History: No Pertinent History Endocrine Medical History: No Pertinent History Musculoskelatal History: Arthritis GI Medical History: No Pertinent History History: No Pertinent History Pyscho-Social History: Anxiety Male Reproductive Disorders: No Pertinent History - Past Surgical History Past Surgical History: Yes Neuro Surgical History: No Pertinent History Cardiac History: No Pertinent History Respiratory Surgery: No Pertinent History GI Surgical History: No Pertinent History Genitourinary Surgical Hx: No Pertinent History Musculskeletal Surgical Hx: No Pertinent History Male Surgical History: No Pertinent History Other Surgical History: sinus surgery - Social History Smoking Status: Current every day smoker How long have you smoked: 15 years Exposure to second hand smoke: Yes Alcohol: None Drug Use: none - Physical Exam Vital Signs: Vital Signs - 24 hr Temp Pulse Resp BP Pulse Ox 03/17/21 12:00 98 F 81 20 121/64 94 L 03/17/21 06:47 97.8 F 68 18 116/58 94 L 03/17/21 06:27 68 18 94 L 03/17/21 04:00 98.1 F 64 18 123/60 03/17/21 01:05 71 16 94 L 03/16/21 23:54 98.1 F 80 18 123/61 92 L 03/16/21 19:37 98.9 F 90 17 129/66 93 L 03/16/21 19:20 81 18 92 L 03/16/21 16:26 92 L 03/16/21 16:25 78 18 92 L 03/16/21 16:14 97.0 F 80 20 121/69 91 L 03/16/21 15:24 93 L 03/16/21 15:05 98.2 F 80 20 128/76 98 03/16/21 14:15 70 20 128/76 94 L General Appearance: no apparent distress, alert Neurologic Exam: oriented x 3, cooperative Eye Exam: eyes nml inspection Ears, Nose, Throat Exam: moist mucous membranes Neck Exam: normal inspection, non-tender, No lymphadenopathy Respiratory Exam: normal breath sounds, lungs clear, No crackles/rales, No rhonchi, No wheezing Cardiovascular Exam: regular rate/rhythm, normal heart sounds, No murmur Gastrointestinal/Abdomen Exam: soft, normal bowel sounds, No tenderness, No distention, No mass, No guarding, No rebound Back Exam: normal inspection, No CVA tenderness, No rash Extremity Exam: normal inspection, No pedal edema, No swelling Skin Exam: normal color, warm, dry, No rash Results - Labs Lab/Micro Results: Lab Results-Last 24 Hours 03/16/21 03/16/21 03/16/21 Range/Units 13:20 13:49 17:01 WBC (4.0-10.5) K/mm3 RBC (4.1-5.6) M/mm3 Hgb (12.5-18.0) gm/dl Hct (42-50) % MCV (78-100) fl MCH (26-32) pg MCHC (32-36) g/dl RDW (11.5-14.0) % Plt Count (150-450) K/mm3 MPV (7.5-11.0) fl Gran % (36.0-66.0) % Eos # (Auto) (0-0.5) Absolute Lymphs (auto) (1.0-4.6) Absolute Monos (auto) (0.0-1.3) Lymphocytes % (24.0-44.0) % Monocytes % (0.0-12.0) % Eosinophils % (0.00-5.0) % Basophils % (0.0-0.4) % Absolute Granulocytes (1.4-6.9) Basophils # (0-0.4) Sodium (137-145) mmol/L Potassium (3.5-5.1) mmol/L Chloride (98-107) mmol/L Carbon Dioxide (22-30) mmol/L Anion Gap (5-15) MEQ/L BUN (9-20) mg/dL Creatinine (0.66-1.25) mg/dL Estimated GFR ML/MIN Glucose (74-106) mg/dL Calcium (8.4-10.2) mg/dL Total Bilirubin (0.2-1.3) mg/dL AST (17-59) U/L ALT (0-50) U/L Alkaline Phosphatase (38-126) U/L Troponin I < 0.012 < 0.012 (0.000-0.034) ng/mL Serum Total Protein (6.3-8.2) g/dL Albumin (3.5-5.0) g/dL SARS-CoV-2 (PCR) NEGATIVE (NEGATIVE) 03/17/21 03/17/21 Range/Units 05:47 05:47 WBC 14.1 H (4.0-10.5) K/mm3 RBC 5.01 (4.1-5.6) M/mm3 Hgb 15.0 (12.5-18.0) gm/dl Hct 45.2 (42-50) % MCV 90.2 (78-100) fl MCH 29.9 (26-32) pg MCHC 33.2 (32-36) g/dl RDW 12.9 (11.5-14.0) % Plt Count 235 (150-450) K/mm3 MPV 10.9 (7.5-11.0) fl Gran % 78.0 H (36.0-66.0) % Eos # (Auto) 0.03 (0-0.5) Absolute Lymphs (auto) 1.80 (1.0-4.6) Absolute Monos (auto) 1.25 (0.0-1.3) Lymphocytes % 12.8 L (24.0-44.0) % Monocytes % 8.9 (0.0-12.0) % Eosinophils % 0.2 (0.00-5.0) % Basophils % 0.1 (0.0-0.4) % Absolute Granulocytes 10.95 H (1.4-6.9) Basophils # 0.02 (0-0.4) Sodium 136 L (137-145) mmol/L Potassium 3.7 (3.5-5.1) mmol/L Chloride 104 (98-107) mmol/L Carbon Dioxide 23 (22-30) mmol/L Anion Gap 12.1 (5-15) MEQ/L BUN 16 (9-20) mg/dL Creatinine 0.78 (0.66-1.25) mg/dL Estimated GFR > 60.0 ML/MIN Glucose 119 H (74-106) mg/dL Calcium 9.0 (8.4-10.2) mg/dL Total Bilirubin 0.60 (0.2-1.3) mg/dL AST 26 (17-59) U/L ALT 60 H (0-50) U/L Alkaline Phosphatase 82 (38-126) U/L Troponin I (0.000-0.034) ng/mL Serum Total Protein 7.3 (6.3-8.2) g/dL Albumin 4.0 (3.5-5.0) g/dL SARS-CoV-2 (PCR) (NEGATIVE) Microbiology 03/16/21 10:53 Blood Culture - Preliminary Blood NO GROWTH TO DATE 03/16/21 10:30 Blood Culture - Preliminary Blood NO GROWTH TO DATE - Radiology Impressions Radiology Exams & Impressions: Radiology Procedures Category Date Time Status CHEST 1 VIEW (PORTABLE) Stat Exams 03/16/21 10:33 Completed CHEST WITH CONTRAST [CT] Stat Exams 03/16/21 11:17 Completed Assessment/Plan (1) Atypical pneumonia Status: Acute Assessment & Plan: Feeling much better with no O2 requirement. Sending pt home on zithromax, to finish 5d course total. Code(s): J18.9 - PNEUMONIA, UNSPECIFIED ORGANISM Hospital Summary - Hospital Course Hospital Course: Pt is a 36 yo male pt of Dr. Jacobson, admitted through ER with aytpical pneumonia and given IV antibiotics and steroids. He felt much better the next day, had not required any O2 since being in the ER (including overnight) so will be discharged to home on po zithromax, to finish a 5 days course for atypical pneumonia. F/u with Dr. Jacobson in 1 week. - Vitals & Intake/Output Vital Signs: Vital Signs Temperature 98 F 03/17/21 12:00 Pulse Rate 81 03/17/21 12:00 Respiratory Rate 20 03/17/21 12:00 Blood Pressure 121/64 03/17/21 12:00 O2 Sat by Pulse Oximetry 94 L 03/17/21 12:00 Intake & Output: Intake & Output 03/15/21 03/16/21 03/17/21 03/18/21 11:59 11:59 11:59 11:59 Intake Total 960 720 Balance 960 720 Weight 250 kg 140.4 kg - Lab Result Diagrams: 03/17/21 05:47 03/17/21 05:47 Lab Results-Last 24 Hrs: Lab Results-Last 24 Hours 03/16/21 03/16/21 03/16/21 Range/Units 13:20 13:49 17:01 WBC (4.0-10.5) K/mm3 RBC (4.1-5.6) M/mm3 Hgb (12.5-18.0) gm/dl Hct (42-50) % MCV (78-100) fl MCH (26-32) pg MCHC (32-36) g/dl RDW (11.5-14.0) % Plt Count (150-450) K/mm3 MPV (7.5-11.0) fl Gran % (36.0-66.0) % Eos # (Auto) (0-0.5) Absolute Lymphs (auto) (1.0-4.6) Absolute Monos (auto) (0.0-1.3) Lymphocytes % (24.0-44.0) % Monocytes % (0.0-12.0) % Eosinophils % (0.00-5.0) % Basophils % (0.0-0.4) % Absolute Granulocytes (1.4-6.9) Basophils # (0-0.4) Sodium (137-145) mmol/L Potassium (3.5-5.1) mmol/L Chloride (98-107) mmol/L Carbon Dioxide (22-30) mmol/L Anion Gap (5-15) MEQ/L BUN (9-20) mg/dL Creatinine (0.66-1.25) mg/dL Estimated GFR ML/MIN Glucose (74-106) mg/dL Calcium (8.4-10.2) mg/dL Total Bilirubin (0.2-1.3) mg/dL AST (17-59) U/L ALT (0-50) U/L Alkaline Phosphatase (38-126) U/L Troponin I < 0.012 < 0.012 (0.000-0.034) ng/mL Serum Total Protein (6.3-8.2) g/dL Albumin (3.5-5.0) g/dL SARS-CoV-2 (PCR) NEGATIVE (NEGATIVE) 03/17/21 03/17/21 Range/Units 05:47 05:47 WBC 14.1 H (4.0-10.5) K/mm3 RBC 5.01 (4.1-5.6) M/mm3 Hgb 15.0 (12.5-18.0) gm/dl Hct 45.2 (42-50) % MCV 90.2 (78-100) fl MCH 29.9 (26-32) pg MCHC 33.2 (32-36) g/dl RDW 12.9 (11.5-14.0) % Plt Count 235 (150-450) K/mm3 MPV 10.9 (7.5-11.0) fl Gran % 78.0 H (36.0-66.0) % Eos # (Auto) 0.03 (0-0.5) Absolute Lymphs (auto) 1.80 (1.0-4.6) Absolute Monos (auto) 1.25 (0.0-1.3) Lymphocytes % 12.8 L (24.0-44.0) % Monocytes % 8.9 (0.0-12.0) % Eosinophils % 0.2 (0.00-5.0) % Basophils % 0.1 (0.0-0.4) % Absolute Granulocytes 10.95 H (1.4-6.9) Basophils # 0.02 (0-0.4) Sodium 136 L (137-145) mmol/L Potassium 3.7 (3.5-5.1) mmol/L Chloride 104 (98-107) mmol/L Carbon Dioxide 23 (22-30) mmol/L Anion Gap 12.1 (5-15) MEQ/L BUN 16 (9-20) mg/dL Creatinine 0.78 (0.66-1.25) mg/dL Estimated GFR > 60.0 ML/MIN Glucose 119 H (74-106) mg/dL Calcium 9.0 (8.4-10.2) mg/dL Total Bilirubin 0.60 (0.2-1.3) mg/dL AST 26 (17-59) U/L ALT 60 H (0-50) U/L Alkaline Phosphatase 82 (38-126) U/L Troponin I (0.000-0.034) ng/mL Serum Total Protein 7.3 (6.3-8.2) g/dL Albumin 4.0 (3.5-5.0) g/dL SARS-CoV-2 (PCR) (NEGATIVE) Micro Results-Entire Visit: Microbiology 03/16/21 10:53 Blood Culture - Preliminary Blood NO GROWTH TO DATE 03/16/21 10:30 Blood Culture - Preliminary Blood NO GROWTH TO DATE - Radiology Exams Ordered Rad Exams-Entire Visit: Radiology Procedures Category Date Time Status CHEST 1 VIEW (PORTABLE) Stat Exams 03/16/21 10:33 Completed CHEST WITH CONTRAST [CT] Stat Exams 03/16/21 11:17 Completed - Procedures and Test Procedures and Tests throughout Hospitalization: Therapy Orders & Screens 03/16/21 10:59 Respiratory Therapy Assessment DAILY Comment: 03/16/21 16:03 Oxygen Nasal Cannula 2 lpm Comment: 03/16/21 16:33 Smoking Cessation Education ONCE Comment: Diagnosis: Bilateral Pneumonia Smoking Status: Current every day smoker How long have you smoked: 15 years Have you smoked in the past 12 months: Yes Do you dip or chew tobacco: No - Discharge Disposition: Home, Self-Care Condition: Stable Prescriptions: New Azithromycin 250 mg [Zithromax 250 MG TABLET] 250 mg PO DAILY 3 Days #3 tablet No Action Fluoxetine HCl 10 mg [Prozac 10 mg] 10 mg PO DAILY Loratadine 10 mg [Claritin 10 mg] 10 mg PO DAILY PRN PRN PRN Reason: Allergies Instructions: Pneumonia in Adults, Azithromycin (Systemic) Follow up with: MIRNA JACOBSON MD [ACTIVE STAFF] - Call for Appointment Forms: Discharge Instructions
== END 2021-03-17 13:00 | disposition home or self-care (01) ==
LOC: ED 09:54 → MED SURG 15:55
PROVIDERS: ADMIT Family Medicine; ATTEND Family Medicine
DX: J18.9 Pneumonia, unspecified organism (principal); R11.2 Nausea with vomiting, unspecified; R53.1 Weakness; R07.9 Chest pain, unspecified; Z79.899 Other long term (current) drug therapy; Z20.822 Contact with and (suspected) exposure to COVID-19; Z86.16 Personal history of COVID-19
CPT/HCPCS: 36000; 36415; 71045; 71260; 80053; 83605; 83690; 83735; 83880; 84484; 85025; 85379; 87040; 93005; 93041; 93268; 94640; 94760; 96365; 96367; 96374; 96375; 99285; G0378; U0003; J0456; J0696; J1650; J2405; J2930; A9270-GY

== ENCOUNTER 2021-07-05 08:32 | Emergency (ER) | payer BC ==
--- NOTE | 2021-07-05 08:40 | ERPHSYRPT ---
- History of Present Illness Time Seen by Provider: 07/05/21 08:39 Source: patient Exam Limitations: no limitations Physician History: This is a 36-year-old white male who works at the [employer] and presents with left shoulder pain. It is worsened over the last 2 days. Patient states he did not do anything different than he normally does. There is no acute traumatic injury per his report. He has no shortness of breath and he denies anterior chest pain. The pain is in his left shoulder and left posterior scapular region. He states he has never had anything like this before. He has no known coronary artery disease. Patient does have a history of anxiety and seasonal allergies. His primary care provider is nurse practitioner Kenneth. Patient states that the pain radiates laterally, cranially up his left neck and caudally down to his elbow on the left side. Occurred: days ago (2) Method of Injury: unknown Quality: aching Severity of Pain-Max: moderate Severity of Pain-Current: moderate Extremities Pain Location: shoulder: left Modifying Factors: Improves With: movement Associated Symptoms: No none, No chest discomfort, No chest pain, No dyspnea, No short of breath Allergies/Adverse Reactions: No Known Drug Allergies Allergy (Verified 03/16/21 10:25) Home Medications: Fluoxetine HCl 10 mg [Prozac 10 mg] 10 mg PO DAILY 03/16/21 [History] Loratadine 10 mg [Claritin 10 mg] 10 mg PO DAILY PRN PRN 03/16/21 [History] Hx Tetanus, Diphtheria Vaccination/Date Given: Yes Hx Influenza Vaccination/Date Given: No Hx Pneumococcal Vaccination/Date Given: No Travel Risk - International Travel Have you traveled outside of the country in past 3 weeks: No - Coronavirus Screening Are you exhibiting any of the following symptoms?: No Close contact with a COVID-19 positive Pt in past 14-21 Days: No - Vaccine Status Have you recieved a Covid-19 vaccination: Yes Forming Department End Finder: Moderna - Vaccination Dates Date of 2cond Vaccination (if applicable): 08/16/20 - Review of Systems Constitutional: No Symptoms Eyes: No Symptoms Ears, Nose, & Throat: No Symptoms Respiratory: No Symptoms Cardiac: No Symptoms Abdominal/Gastrointestinal: No Symptoms Genitourinary Symptoms: No Symptoms Musculoskeletal: Joint Pain (Left shoulder) Skin: No Symptoms Neurological: No Symptoms Psychological: No Symptoms Endocrine: No Symptoms Hematologic/Lymphatic: No Symptoms Immunological/Allergic: No Symptoms All Other Systems: Reviewed and Negative - Past Medical History Pertinent Past Medical History: No Neurological History: No Pertinent History ENT History: No Pertinent History Cardiac History: No Pertinent History Respiratory History: No Pertinent History Endocrine Medical History: No Pertinent History Musculoskeletal History: Arthritis GI Medical History: No Pertinent History History: No Pertinent History Psycho-Social History: Anxiety Male Reproductive Disorders: No Pertinent History - Past Surgical History Past Surgical History: Yes Neuro Surgical History: No Pertinent History Cardiac: No Pertinent History Respiratory: No Pertinent History Gastrointestinal: No Pertinent History Genitourinary: No Pertinent History Musculoskeletal: No Pertinent History Male Surgical History: No Pertinent History Other Surgical History: sinus surgery - Social History Smoking Status: Current every day smoker How long have you smoked: 15 years Exposure to second hand smoke: Yes Drug Use: none Patient Lives Alone: No - Nursing Vital Signs Nursing Vital Signs: Initial Vital Signs Temperature 97.8 F 07/05/21 08:38 Pulse Rate 94 H 07/05/21 08:38 Respiratory Rate 22 07/05/21 08:38 Blood Pressure 142/88 07/05/21 08:38 O2 Sat by Pulse Oximetry 100 07/05/21 08:38 Pain Scale Pain Intensity 8 - Physical Exam General Appearance: mild distress, alert, anxiety, obese Eyes, Ears, Nose, Throat Exam: normal ENT inspection, moist mucous membranes Neck Exam: normal inspection, non-tender, supple, full range of motion Cardiovascular/Respiratory Exam: chest non-tender, normal breath sounds, regular rate/rhythm, heart sounds normal, no respiratory distress Abdominal Exam: non-tender Back Exam: normal inspection, normal range of motion, No CVA tenderness, No vertebral tenderness Shoulder Exam: normal inspection, no evidence of injury, normal ROM, bone tenderness, soft tissue tenderness (Primarily left posterior scapular) Elbow/Forearm Exam: normal inspection, non-tender, no evidence of injury, normal ROM Wrist Exam: normal inspection, non-tender, no evidence of injury, normal ROM Hand Exam: normal inspection, non-tender, no evidence of injury, normal ROM Neuro/Tendon Exam: normal sensation, normal motor functions, normal tendon functions, responds to pain, no evidence tendon injury Mental Status Exam: alert, oriented x 3, cooperative Skin Exam: normal color, warm, dry SpO2 Interpretation: normal O2 Delivery: Room Air - Course Nursing assessment & vital signs reviewed: Yes EKG Interpreted by Me: RATE (87), Sinus Rhythm, NORMAL AXIS, NORMAL INTERVALS, NORMAL QRS, NORMAL ST-T, Other (No acute ischemic changes on today's EKG. No change from 12-lead EKG performed on 03/16/2021) Ordered Tests: Active Orders 24 hr Category Date Time Status SHOULDER Stat Exams 07/05/21 08:40 Completed BMP Stat Lab 07/05/21 09:05 Completed CBC W DIFF Stat Lab 07/05/21 09:05 Completed TROPONIN Q3H Lab 07/05/21 09:05 Completed TROPONIN Q3H Lab 07/05/21 12:00 Ordered TROPONIN Q3H Lab 07/05/21 15:00 Ordered TROPONIN Q3H Lab 07/05/21 18:00 Ordered TROPONIN Q3H Lab 07/05/21 21:00 Ordered Medication Summary Discontinued Medications Generic Name Dose Route Start Last Admin Trade Name Freq PRN Reason Stop Dose Admin Methylprednisolone Sodium 0 mg 07/05/21 09:58 Succinate 125 mg/ Sterile IM 07/05/21 09:59 Water 2 ml STAT ONE Orphenadrine Citrate 60 mg 07/05/21 09:58 Orphenadrine Citrate 60 Mg/2 Ml Amp IM 07/05/21 09:59 STAT ONE Lab/Rad Data: Laboratory Result Diagrams 07/05/21 09:05 07/05/21 09:05 Laboratory Results 07/05/21 07/05/21 07/05/21 Range/Units 09:05 09:05 09:05 WBC 9.9 (4.0-10.5) K/mm3 RBC 5.60 (4.1-5.6) M/mm3 Hgb 17.0 (12.5-18.0) gm/dl Hct 49.8 (42-50) % MCV 88.9 (78-100) fl MCH 30.4 (26-32) pg MCHC 34.1 (32-36) g/dl RDW 13.5 (11.5-14.0) % Plt Count 212 (150-450) K/mm3 MPV 11.6 H (7.5-11.0) fl Gran % 59.8 (36.0-66.0) % Eos # (Auto) 0.54 H (0-0.5) Absolute Lymphs (auto) 2.65 (1.0-4.6) Absolute Monos (auto) 0.73 (0.0-1.3) Lymphocytes % 26.8 (24.0-44.0) % Monocytes % 7.4 (0.0-12.0) % Eosinophils % 5.5 H (0.00-5.0) % Basophils % 0.5 (0.0-0.4) % Absolute Granulocytes 5.90 (1.4-6.9) Basophils # 0.05 (0-0.4) Sodium 141 (137-145) mmol/L Potassium 4.0 (3.5-5.1) mmol/L Chloride 107 (98-107) mmol/L Carbon Dioxide 22 (22-30) mmol/L Anion Gap 15.8 H (5-15) MEQ/L BUN 18 (9-20) mg/dL Creatinine 1.00 (0.66-1.25) mg/dL Estimated GFR > 60.0 ML/MIN Glucose 133 H (74-106) mg/dL Calcium 9.1 (8.4-10.2) mg/dL Troponin I < 0.012 (0.000-0.034) ng/mL - Progress Progress: improved, pain not gone completely Progress Note: 07/05/21 09:57 Left shoulder x-ray shows degenerative changes with spurring present. No acute fracture or dislocation. Counseled pt/family regarding: diagnosis, need for follow-up, rad results - Departure Departure Disposition: Home Clinical Impression: Left shoulder pain Condition: Stable Critical Care Time: No Referrals: LIAN REYNA NP [Primary Care Provider] - Follow up/PCP as directed Additional Instructions: Take medication as prescribed. Follow-up with your prescribing provider for further evaluation and management. Prescriptions: Hydrocodone/APAP 5/325 [Beverly 5/325 mg] 1 each PO Q8H PRN PRN #6 tablet MDD 3 PRN Reason: Pain Prednisone 10 mg [Deltasone 10 mg] 10 mg PO TID #12 tablet Orphenadrine Citrate 100 mg [Norflex 100 MG Tablet] 100 mg PO BID #10 tab
[2021-07-05 09:38] LABS: Basophil (Absolute #) 0.05 (0-0.4); Eosinophil % 5.5 % (0.00-5.0); Eosinophil (Absolute #) 0.54 (0-0.5); Hematocrit 49.8 % (42-50); Lymphocyte (Absolute #) 2.65 (1.0-4.6); Lymphocytes % 26.8 % (24.0-44.0); Mean Cell Volume 88.9 fl (78-100); Mean Corpuscular Hemoglobin 30.4 pg (26-32); Mean Corpuscular Hgb Concent. 34.1 g/dl (32-36); Mean Platelet Volume 11.6 fl (7.5-11.0); Monocyte (Absolute #) 0.73 (0.0-1.3); Monocytes % 7.4 % (0.0-12.0); Neutrophil % 59.8 % (36.0-66.0); Platelet Count 212 K/mm3 (150-450); Red Cell Distribution Width 13.5 % (11.5-14.0); White Blood Count 9.9 K/mm3 (4.0-10.5)
[2021-07-05 09:41] LABS: ANION GAP 15.8 MEQ/L (5-15); BLOOD UREA NITROGEN 18 mg/dL (9-20); CHLORIDE 107 mmol/L (98-107); Calcium 9.1 mg/dL (8.4-10.2); Carbon Dioxide 22 mmol/L (22-30); EST GLOMERULAR FILTRATION RATE > 60.0 ML/MIN; Glucose 133 mg/dL (74-106); SODIUM 141 mmol/L (137-145)
[2021-07-05 09:43] VITALS: O2SAT 98
--- NOTE | 2021-07-05 09:47 | XRAY ---
Indication: Burning stabbing pain. No known injury. Comparison: None 3 view left shoulder demonstrates mild AC degenerative arthropathy with tiny inferior spurring. No other bony, articular, or soft tissue abnormalities.
[2021-07-05] MEDS ORDERED: Norflex 60 MG/2 ML IM ONE (09:58)
[2021-07-05] MEDS ORDERED: solu-MEDROL 125 MG, Sterile H2O 10 ml 2 ML IM ONE ×2 (09:58)
[2021-07-05 10:05] VITALS: BP 132/79; PULSE 76
[2021-07-05] MEDS ORDERED: solu-MEDROL ONE (10:05)
[2021-07-05] MEDS ORDERED: Norflex 60 MG/2 ML ONE (10:05)
[2021-07-05] MEDS ORDERED: Sterile H2O 10 ml IJ ONE (10:05)
== END 2021-07-05 10:17 | disposition home or self-care (01) ==
LOC: ED 08:32
DX: M25.512 Pain in left shoulder (principal); Z72.0 Tobacco use; Z79.899 Other long term (current) drug therapy; Z79.891 Long term (current) use of opiate analgesic; Z79.52 Long term (current) use of systemic steroids
CPT/HCPCS: 36415; 73030; 80048; 84484; 85025; 96372; 99284; J2360; J2930

== ENCOUNTER 2021-10-22 08:04 | Emergency (ER) | payer BC ==
[2021-10-22] MEDS ORDERED: solu-MEDROL 125 MG, Sterile H2O 10 ml 2 ML IV ONE ×2 (08:06)
[2021-10-22] MEDS ORDERED: DUONEB 0.5-3 MG/3 ml Neb IH ONE ×2 (08:06→08:17)
[2021-10-22] MEDS ORDERED: solu-MEDROL ONE (08:18)
[2021-10-22 08:40] LABS: Absolute Neutrophil Ct (ANC) 10.12 x10^3/uL (1.4-6.9); Basophil (Absolute #) 0.11 x10^3/uL (0-0.4); Eosinophil % 4.1 % (0.00-5.0); Eosinophil (Absolute #) 0.59 x10^3/uL (0-0.5); Hematocrit 50.1 % (42-50); Lymphocyte (Absolute #) 2.82 x10^3/uL (1.0-4.6); Lymphocytes % 19.4 % (24.0-44.0); Mean Cell Volume 91.4 fL (78-100); Mean Corpuscular Hgb Concent. 33.9 g/dL (32-36); Mean Platelet Volume 10.9 fL (7.5-11.0); Monocyte (Absolute #) 0.86 x10^3/uL (0.0-1.3); Monocytes % 5.9 % (0.0-12.0); Neutrophil % 69.4 % (36.0-66.0); Platelet Count 249 x10^3/uL (150-450); Red Blood Count 5.48 x10^6/uL (4.1-5.6); Red Cell Distribution Width 12.6 % (11.5-14.0); White Blood Count 14.6 x10^3/uL (4.0-10.5)
--- NOTE | 2021-10-22 08:43 | ERPHSYRPT ---
- History of Present Illness Time Seen by Provider: 10/22/21 08:10 Source: patient Exam Limitations: no limitations Patient Subjective Stated Complaint: SOB Triage Nursing Assessment: Patient ambulated back to ED and transferred self to bed. Patient A+O X3. Patient's skin pink, warm and dry. Patient complains of SOB that has gotten worse over night. Patient states he has productive cough with small amount of white sputum. Lungs noted to have wheezing throughout. Patient denies pain or discomfort. Physician History: Patient is a 36-year-old male presents to emergency department for evaluation of shortness of breath. Symptoms started yesterday. Symptoms have been progressive. Patient describes a productive cough. Cough productive of white sputum. Patient is wheezing. Patient has a history of COVID-19 pneumonia. He is also a smoker. Patient denies chest pain. No nausea vomiting or diaphoresis. Symptoms are moderate in intensity. Exertion worsens symptoms. Patient states is otherwise healthy. He voices no other complaints or concerns at this time. Timing/Duration: yesterday Activities at Onset: none Severity of Dyspnea-Max: moderate Severity of Dyspnea-Current: mild Possible Cause: no prior episodes Modifying Factors: Improves With: activity, coughing Associated Symptoms: cough, wheezing, No chest pain/discomfort, No fever, No loss of appetite, No lightheadedness, No ankle swelling, No hemoptysis, No lightheadedness, No leg swelling, No muscle spasms feet, No muscle spasms hands, No painful breathing Allergies/Adverse Reactions: No Known Drug Allergies Allergy (Verified 10/22/21 08:06) Hx Tetanus, Diphtheria Vaccination/Date Given: Yes Hx Influenza Vaccination/Date Given: No Hx Pneumococcal Vaccination/Date Given: No Immunizations Up to Date: Yes Travel Risk - International Travel Have you traveled outside of the country in past 3 weeks: No - Coronavirus Screening Are you exhibiting any of the following symptoms?: No Close contact with a COVID-19 positive Pt in past 14-21 Days: No - Vaccine Status Have you recieved a Covid-19 vaccination: Yes Field Professional: Moderna - Vaccination Dates Date of 2cond Vaccination (if applicable): 08/16/20 - Review of Systems Constitutional: No Symptoms, No Fever, No Chills Eyes: No Symptoms Ears, Nose, & Throat: No Symptoms Respiratory: No Symptoms, No Cough, No Dyspnea Cardiac: No Symptoms, No Chest Pain, No Edema, No Syncope Abdominal/Gastrointestinal: No Symptoms, No Abdominal Pain, No Nausea, No Vomiting, No Diarrhea Genitourinary Symptoms: No Symptoms, No Dysuria Musculoskeletal: No Symptoms, No Back Pain, No Neck Pain Skin: No Symptoms, No Rash Neurological: No Symptoms, No Dizziness, No Focal Weakness, No Sensory Changes Psychological: No Symptoms Endocrine: No Symptoms Hematologic/Lymphatic: No Symptoms Immunological/Allergic: No Symptoms All Other Systems: Reviewed and Negative - Past Medical History Pertinent Past Medical History: No Neurological History: No Pertinent History ENT History: No Pertinent History Cardiac History: No Pertinent History Respiratory History: No Pertinent History Endocrine Medical History: No Pertinent History Musculoskeletal History: Arthritis GI Medical History: No Pertinent History History: No Pertinent History Psycho-Social History: Anxiety Male Reproductive Disorders: No Pertinent History - Past Surgical History Past Surgical History: Yes Neuro Surgical History: No Pertinent History Cardiac: No Pertinent History Respiratory: No Pertinent History Gastrointestinal: No Pertinent History Genitourinary: No Pertinent History Musculoskeletal: No Pertinent History Male Surgical History: No Pertinent History Other Surgical History: sinus surgery - Social History Smoking Status: Current every day smoker How long have you smoked: 15 years Exposure to second hand smoke: Yes Drug Use: none Patient Lives Alone: No - Nursing Vital Signs Nursing Vital Signs: Initial Vital Signs Temperature 97.2 F 10/22/21 08:07 Pulse Rate 108 H 10/22/21 08:07 Respiratory Rate 35 H 10/22/21 08:07 Blood Pressure 150/91 10/22/21 08:07 O2 Sat by Pulse Oximetry 93 L 10/22/21 08:07 Pain Scale Pain Intensity 1 - Physical Exam General Appearance: no apparent distress, alert Eye Exam: PERRL/EOMI, eyes nml inspection, No scleral icterus Ears, Nose, Throat Exam: hearing grossly normal, normal ENT inspection, normal pharynx Neck Exam: normal inspection, non-tender, supple, full range of motion Respiratory Exam: diminished breath sounds, wheezing, No chest tenderness, No stridor Cardiovascular/Chest Exam: normal heart sounds, regular rate/rhythm Abdominal/Gastrointestinal Exam: soft, normal bowel sounds, No tenderness, No distention, No mass, No guarding Extremity Exam: non-tender, normal range of motion, normal inspection, no calf tenderness, no pedal edema Neurologic Exam: alert, oriented x 3, cooperative, maritime officer II-XII nml as tested, normal mood/affect, sensation nml, No motor deficits Skin Exam: normal color, warm, No dry Lymphatic Exam: No adenopathy SpO2 Interpretation: normal SpO2: 94 O2 Delivery: Room Air - Course Nursing assessment & vital signs reviewed: Yes EKG Interpreted by Me: RATE (105), Sinus Tach, NORMAL AXIS, NORMAL INTERVALS (Ventricular trigeminy) - Radiology Exams Chest X-ray Interpretation: Teleradiologist Report (Lungs are clear normal cardiac silhouette. Intact bony thorax) Ordered Tests: Active Orders 24 hr Category Date Time Status Communications Intern STAT Care 10/22/21 08:06 Active EKG-ER Only STAT Care 10/22/21 08:06 Active IV Insertion STAT Care 10/22/21 08:06 Active Pulse Oximetry (ED) STAT Care 10/22/21 08:06 Active CHEST 1 VIEW (PORTABLE) Stat Exams 10/22/21 08:07 Completed BLOOD CULTURE Stat Lab 10/22/21 08:48 Received CBC W DIFF Stat Lab 10/22/21 08:16 Completed CMP Stat Lab 10/22/21 08:16 Completed D-DIMER QUANTITATIVE Stat Lab 10/22/21 08:16 Completed TROPONIN Q3H Lab 10/22/21 08:16 Received TROPONIN Q3H Lab 10/22/21 11:15 Ordered TROPONIN Q3H Lab 10/22/21 14:15 Ordered TROPONIN Q3H Lab 10/22/21 17:15 Ordered TROPONIN Q3H Lab 10/22/21 20:15 Ordered Respiratory Therapy Assessment DAILY RT 10/22/21 08:18 Active Medication Summary Generic Name Dose Route Start Last Admin Trade Name Freq PRN Reason Stop Dose Admin Sodium Chloride 1,000 mls @ 999 mls/hr 10/22/21 10:28 10/22/21 10:31 Sodium Chloride 0.9% 1000 Ml IV 10/22/21 11:28 999 mls/hr .Q1H1M STA Administration Discontinued Medications Generic Name Dose Route Start Last Admin Trade Name Freq PRN Reason Stop Dose Admin Albuterol Sulfate 2.5 mg 10/22/21 09:20 10/22/21 09:29 Albuterol Sulfate 2.5 Mg/3 Ml Neb IH 10/22/21 09:21 2.5 mg STAT ONE Administration Albuterol Sulfate Confirm 10/22/21 09:28 Albuterol Sulfate 2.5 Mg/3 Ml Neb Administered 10/22/21 09:29 Dose 2.5 mg IH .STK-MED ONE Albuterol/Ipratropium 3 ml 10/22/21 08:06 10/22/21 08:24 Ipratropium/Albuterol Sulfate 3 Ml Ampul.Neb IH 10/22/21 08:07 3 ml STAT ONE Administration Albuterol/Ipratropium Confirm 10/22/21 08:17 Ipratropium/Albuterol Sulfate 3 Ml Ampul.Neb Administered 10/22/21 08:18 Dose 3 ml IH .STK-MED ONE Methylprednisolone Sodium 0 mg 10/22/21 08:06 10/22/21 08:24 Succinate 125 mg/ Sterile IV 10/22/21 08:07 125 mg Water 2 ml STAT ONE Administration Sodium Chloride Confirm 10/22/21 10:30 Sodium Chloride 0.9% 1000 Ml Administered 10/22/21 10:31 Dose 1,000 mls @ ud .ROUTE .STK-MED ONE Methylprednisolone Sodium Succinate Confirm 10/22/21 08:18 Methylprednis Sod Succ 125 Mg/2 Ml Vial Administered 10/22/21 08:19 Dose 125 mg .ROUTE .STK-MED ONE Lab/Rad Data: Laboratory Result Diagrams 10/22/21 08:16 10/22/21 08:16 Laboratory Results 10/22/21 10/22/21 10/22/21 Range/Units 08:16 08:16 08:16 WBC 14.6 H (4.0-10.5) x10^3/uL RBC 5.48 (4.1-5.6) x10^6/uL Hgb 17.0 (12.5-18.0) g/dL Hct 50.1 H (42-50) % MCV 91.4 (78-100) fL MCH 31.0 (26-32) pg MCHC 33.9 (32-36) g/dL RDW 12.6 (11.5-14.0) % Plt Count 249 (150-450) x10^3/uL MPV 10.9 (7.5-11.0) fL Gran % 69.4 H (36.0-66.0) % Immature Gran % (Auto) 0.4 (0.00-0.4) % Nucleat RBC Rel Count 0.0 (0.00-0.1) % Eos # (Auto) 0.59 H (0-0.5) x10^3/uL Immature Gran # (Auto) 0.06 H (0.00-0.03) x10^3u/L Absolute Lymphs (auto) 2.82 (1.0-4.6) x10^3/uL Absolute Monos (auto) 0.86 (0.0-1.3) x10^3/uL Absolute Nucleated RBC 0.00 (0.00-0.01) x10^3u/L Lymphocytes % 19.4 L (24.0-44.0) % Monocytes % 5.9 (0.0-12.0) % Eosinophils % 4.1 (0.00-5.0) % Basophils % 0.8 (0.0-0.4) % Absolute Granulocytes 10.12 H (1.4-6.9) x10^3/uL Basophils # 0.11 (0-0.4) x10^3/uL D-Dimer 0.21 (0.0-0.50) mg/L Sodium 142 (137-145) mmol/L Potassium 4.1 (3.5-5.1) mmol/L Chloride 107 (98-107) mmol/L Carbon Dioxide 22 (22-30) mmol/L Anion Gap 16.8 H (5-15) MEQ/L BUN 19 (9-20) mg/dL Creatinine 0.80 (0.66-1.25) mg/dL Estimated GFR > 60.0 ML/MIN Glucose 139 H (74-106) mg/dL Calcium 9.2 (8.4-10.2) mg/dL Total Bilirubin 0.70 (0.2-1.3) mg/dL AST 44 (17-59) U/L ALT 79 H (0-50) U/L Alkaline Phosphatase 110 (38-126) U/L Serum Total Protein 7.4 (6.3-8.2) g/dL Albumin 4.2 (3.5-5.0) g/dL - Progress Progress: improved Air Movement: good Progress Note: Patient reassessed. He states he feels much better. Wheezing essentially resolved. Patient was mildly tachycardic. Tachycardia resolved with IV fluids. D-dimer negative. Troponin negative. Patient states he has a history of environmental allergies that occasionally triggers his shortness of breath. Work-up reveals a leukocytosis. Cough improved. Chest x-ray clear. This appears to be a reactive airway condition however atypical pneumonia is not ruled out. A prescription for a Z-Shorty was forwarded to patient's pharmacy. A prescription for prednisone and an albuterol inhaler will also forwarded the patient's pharmacy. Patient now requesting discharge. Mother at bedside. Patient agrees to follow- up with primary care doctor within 48 hours for evaluation. Portions of this note were created with voice recognition technology. There may be grammatical, spelling, punctuation or sound alike errors 10/22/21 10:57 Blood Culture(s) Obtained: Yes Antibiotics given: No (Antibiotics forwarded to patient's pharmacy. Not administered during his ER visit.) Counseled pt/family regarding: lab results, diagnosis, need for follow-up, rad results - Departure Departure Disposition: Home Clinical Impression: Leukocytosis, Reactive airway disease, SOB (shortness of breath) Condition: Stable Critical Care Time: No Referrals: LIAN REYNA, OBED [Primary Care Provider] - Follow up/PCP as directed Additional Instructions: Discharge/Care Plan [facility] was seen on 10/22/21 in the Emergency Room. The patient was counseled regarding Diagnosis,Lab results, Imaging studies, need for follow up and when to return to the Emergency Room. Prescriptions given: Discharge Note I have spoken with the patient and/or caregivers. I have explained the patient's condition, diagnosis and treatment plan based on the information available to me at this time. I have answered the patient's and/or caregiver's questions and addressed any concerns. The patient and/or caregivers have as good understanding of the patient's diagnosis, condition and treatment plan as can be expected at this point. The vital signs have been stable. The patient's condition is stable and appropriate for discharge from the emergency department. The patient will pursue further outpatient evaluation with the primary care physician or other designated or consulting physician as outlined in the discharge instructions. The patient and/or caregivers are agreeable to this plan of care and follow-up instructions have been explained in detail. The patient and/or caregivers have received these instruction. The patient/and or caregivers are aware that any significant change in condition or worsening of symptoms should prompt an immediate return to this or the closest emergency department or call 911. Prescriptions: Prednisone 10 mg [Deltasone 10 mg] 40 mg PO DAILY 3 Days #12 tablet Albuterol 8 gm Mdi Hfa [Ventolin Hfa MDI] 8 gm IH Q4H #1 Azithromycin 250 mg [Zithromax 250 MG TABLET] 250 mg PO ZPACK #6 tablet
[2021-10-22 08:48] LABS: ALBUMIN 4.2 g/dL (3.5-5.0); ALKALINE PHOSPHATASE 110 U/L (38-126); ANION GAP 16.8 MEQ/L (5-15); BLOOD UREA NITROGEN 19 mg/dL (9-20); CHLORIDE 107 mmol/L (98-107); Calcium 9.2 mg/dL (8.4-10.2); Carbon Dioxide 22 mmol/L (22-30); EST GLOMERULAR FILTRATION RATE > 60.0 ML/MIN; Glucose 139 mg/dL (74-106); Potassium 4.1 mmol/L (3.5-5.1); SGOT/AST 44 U/L (17-59); SGPT/ALT 79 U/L (0-50); SODIUM 142 mmol/L (137-145); Total Protein 7.4 g/dL (6.3-8.2)
--- NOTE | 2021-10-22 08:57 | XRAY ---
Indication: Short of breath. Comparison: March 16, 2021. Portable chest demonstrates normal heart, lungs, and bony thorax.
[2021-10-22] MEDS ORDERED: PROVENTIL 2.5 MG/3 ML NEB IH ONE ×2 (09:20→09:28)
[2021-10-22] MEDS ORDERED: Sodium Chloride 0.9% 1000 ML 1,000 ML IV STA (10:28)
[2021-10-22] MEDS ORDERED: Sodium Chloride 0.9% 1000 ML 1,000 ML ONE (10:30)
[2021-10-22 10:56] VITALS: BP 147/86; PULSE 97
[2021-10-22 11:00] VITALS: O2SAT 94
== END 2021-10-22 11:03 | disposition home or self-care (01) ==
LOC: ED 08:04
DX: J45.909 Unspecified asthma, uncomplicated (principal); R06.02 Shortness of breath; D72.829 Elevated white blood cell count, unspecified; Z86.16 Personal history of COVID-19; Z72.0 Tobacco use; R00.0 Tachycardia, unspecified; Z79.52 Long term (current) use of systemic steroids
CPT/HCPCS: 36000; 36415; 71045; 80053; 84484; 85025; 85379; 87040; 93005; 93041; 94640; 94760; 96374; 99284; J2930; J7609; A9270-GY